=== PATIENT | female | born 1935 | race Caucasian/White ===

== ENCOUNTER → 2024-01-08 11:20 | Outpatient (REF) | payer OTHER, SELFPAY | LOC: RAD 11:20 | PROVIDERS: ATTENDING PHYSICIAN Student in an Organized Health Care Education/Training Program; FAMILY PHYSICIAN Internal Medicine Geriatric Medicine; OTHER PHYSICIAN Physician Assistant; REFERRING PHYSICIAN Radiology Vascular & Interventional Radiology | DX: S32.020A Wedge compression fracture of second lumbar vertebra, initial encounter for closed fracture (principal) | CPT/HCPCS: 72131 ==

== ENCOUNTER → 2024-01-18 06:57 | Outpatient (REF) | payer OTHER, SELFPAY ==
[2024-01-18] VITALS (13 sets, daily range): BP systolic 58–179; BP diastolic 57–90
[2024-01-18 07:31] LABS: Hematocrit 42.3 % (37.0-47.0); Mean Corp Hgb Conc. 33.1 g/dL (33.0-37.0); Mean Corpuscular Hgb 30.9 pg (27.0-31.0); Mean Corpuscular Volume 93.4 fL (81.0-99.0); Mean Platelet Volume 9.7 fL (7.4-10.4); Platelet Count 203 10^3/uL (130-400); Red Blood Cell Count 4.53 10^6/uL (4.20-5.40); Red Cell Dist. Width 15.8 % (11.5-14.5); White Blood Cell Count 8.2 10^3/uL (4.8-10.8)
[2024-01-18 07:38] LABS: INR 1.04; PT 13.9 Sec (11.4-14.6)
[2024-01-18] MEDS: ANCEF 10 IV (08:50)
== END ==
LOC: RADI 06:57
PROVIDERS: ATTENDING PHYSICIAN Radiology Vascular & Interventional Radiology; FAMILY PHYSICIAN Internal Medicine Geriatric Medicine; REFERRING PHYSICIAN Student in an Organized Health Care Education/Training Program
DX: M80.08XA Age-related osteoporosis with current pathological fracture, vertebra(e), initial encounter for fracture (principal); D68.8 Other specified coagulation defects; M54.50 Low back pain, unspecified
CPT/HCPCS: 22514; 22515; 36415; 76377; 85027; 85610

== ENCOUNTER 2024-01-29 08:02 | Inpatient (IN) | payer OTHER, SELFPAY ==
[2024-01-26 11:23] VITALS: BP 141/89
[2024-01-26] MEDS: DILAUDID 0.25 MG IV (13:57)
[2024-01-26] MEDS: ZOFRAN 4 MG IV (13:57)
[2024-01-26] MEDS: NSS 500 IV (13:57)
--- NOTE | 2024-01-26 13:58 | ED.GENMED ---
History of Present Illness
General
Chief Complaint: Back Pain
Source: patient and family
Exam Limitations: none
Time Seen by Provider: 01/26/24 13:00
Nursing documentation reviewed up to this point in time: agreed with
History of Present Illness
History of Present Illness:
pt is a 88 y/o F with h/o HTN, HLD, mi
chronic back pain secondary to compression fx since oct 2023
was on oxycodone up to 7.5 mg 4 times a day
iniitally only 1 compresion fx idenfied
until another image this month showed a 2nd one
then on 01/[address] brunner L2, L3. she was doing ok afterward for 2-3 days and then pain got much
she doesns't recall injuring her self
she was doing more walking just before her pain restarted
she feels like she did after the original compression fracture
pt has chronic urinary incontinence,, and no change to this
she has no numbness/tingling/weakness or radiation of pain
but her pain is severe with movement in the stretcher
she was unable to get herself out of bed so she came via 911
no fever, chills, diarrhea
she has some consitpation but miralax hleped
pt has also had nause/avomiting intermittently the past few weeks/months but more frequently in the past 2-3 day
she has no abdomianl pain
Past History
Past History
ED Past Medical History: HTN, Hypercholesterolemia and Other ([place])
Social History
Tobacco: Non-smoker
Alcohol: None
Drug: None
Personal: Single
Living: alone
Review of Systems
Review of Systems
Allergies reviewed?: Yes
All Other Systems: Not applicable
Phy Exam
Physical Exam
Physical Exam:
GENERAL: Alert ,ANXIOUS, MOILDLY UNCOMFORTABLE
MM dry
CARDIAC: Regular rate and rhythm, no edema
LUNGS: Clear breath sounds bilaterally, no acute respiratory distress, no wheezes/rales/rhonchi
ABDOMEN: Soft, without focal tenderness, no r/g, no cvat, normal bowel sounds, nondistended
NEUROLOGICAL: Alert and oriented, no focal neuro deficits, CN intact, 5/5 strength, sensation intact, ambulation slight limp left leg
SKIN: Warm and dry, bandaids back
no erythema
MUSCULOSKELETAL: No edema, well perfused. can range hips
Back: No midline tenderness, mild b/l lumbar paraspinal muscle tenderness, some pain with rotation/moving in the stretcher no swelling
negative straight leg raise Bilaterally
PSYCH: Normal and appropriate interaction.
Course
Orders/Labs/Results
Orders:
Orders
01/26/24 Breakfast
Cholesterol Lowering
At Your Request: Full Participation
Cholesterol Lowering: Sodium, 2 Gram
01/26/24 13:31
Straight cath- Treatment ONCE
0.9% Sodium Chloride 500 ml [Nss] 500 ml IV BOLUS
HYDROmorphone [Dilaudid] 0.25 mg IV NOW STA
Ondansetron Injectable [Zofran] 4 mg IV NOW STA
01/26/24 13:32
CT Lumbar Spine W/o Iv Contras Urgent
Comment:
Reason For Exam: severe back pain; 8 days ago vertebroplasty l2/l3
01/26/24 13:54
Complete Blood Count/With Diff Urgent
01/26/24 14:12
Urinalysis Reflex To Culture Urgent
Date Specimen was Collected: 01/26/24
Time Specimen was Collected: 14:11
Urine Microscopic Reflex Cult Urgent
Urine Culture Urgent
TAYLOR Source: U
Specimen Description:
Date Specimen was Collected: 01/26/24
Time Specimen was Collected: 14:11
01/26/24 15:30
Basic Metabolic Panel Urgent
Lipase Urgent
01/26/24 16:29
CefTRIAXone [Rocephin] 1,000 mg IV NOW STA
01/26/24 16:33
CMP [Comprehensive Metabolic Panel] Urgent
01/26/24 16:35
Sterile Water [Sterile Water For Injection] 10 ml .ROUTE .STK-MED ONE
01/26/24 16:52
Admit/Transfer Patient As Directed
Co-Sign Provider:
Level of Care: Observation services
Assign to:: Medical/Surgical
Physician / Group: hai
Diagnosis: UTI
PRN Pain Medication Management As Directed
May give lesser potent ordered pain med per pt: Yes
preference::
Protocol:: Medication orders for pain may be administered in a
manner that supports deferring to patient preference
when the pt is:
- Requesting an ordered lesser potent pain medication.
Least to most potent pain medications are defined
as: acetaminophen < NSAID < tramadol < opioids
(morphine, oxycodone, hydromorphone).
- Requesting a lesser dose of the same medication IF
ORDERED.
- Requesting a less intrusive route of administration
if both routes are prescribed by the provider (PO <
IV).
01/26/24 16:53
Code Status As Directed
Resuscitation Status: Do not resuscitate
Reached after discussion with pt or family/Healthcare POA: Yes
DNR Bracelet Application ONCE
01/26/24 18:21
Bisacodyl [Dulcolax] 10 mg RECTAL [id number] PRN
Docusate W/Senna [Senokot-S] 1 tablet PO BIDPRN PRN
Polyethylene Glycol Powder [Miralax] 17 grams PO DAILYPRN PRN
01/26/24 18:21
Activity As Directed
Activity Level: As Tolerated
Pneumatic Compression Sleeves As Directed
Type: Knee high
Vital Signs As Directed
Frequency: Per unit guidelines
DX Deep Vein Thrombosis Video Routine
01/26/24 19:22
HYDROmorphone [Dilaudid] 1 mg IV Q4HPRN PRN
01/26/24 22:00
Acetaminophen [Tylenol] 1,000 mg PO TID
Atorvastatin [Lipitor] 20 mg PO HS
Losartan [Cozaar] 25 mg PO HS
01/27/24 06:00
Occupational Therapy Consult [Ot Eval And Treat] IN AM
Physical Therapy Consult [Pt Eval And Treat] IN AM
Activity Level: As Tolerated
01/27/24 08:00
Atenolol [Tenormin] 25 mg PO Q48H
Lidocaine [Lidocaine 4% Patch] 1 patch TOPICAL DAILY
Apply Lidocaine patch(s) to:: LOWER BACK
Sertraline HCl [Zoloft] 100 mg PO DAILY
Abnormal Lab Results
01/26/24 01/26/24 01/26/24
13:54 14:12 15:30
MCHC 32.9 L g/dL
(33.0-37.0)
RDW 15.9 H %
(11.5-14.5)
Abs Immat Gran (auto) 0.1 H 10^3/uL
(0-0.05)
Absolute Neuts (auto) 7.7 H 10^3/uL
(1.4-6.5)
Absolute Lymphs (auto) 0.8 L 10^3/uL
(1.2-3.4)
Absolute Monos (auto) 1.1 H 10^3/uL
(0.1-0.6)
Neutrophils % 79.1 H %
(42.2-75.2)
Lymphocytes % 7.8 L %
(20.5-51.1)
Monocytes % 11.2 H %
(1.7-9.3)
Creatinine 0.5 L mg/dL
(0.6-1.0)
Glucose 112 H mg/dl
(70-99)
Urine Ketones 1+ A
(Negative)
Ur Occult Blood Reflex Trace A
(Negative)
Urine Nitrite (Reflex) Positive A
(Negative)
Urine Bilirubin 1+ A
(Negative)
Leukocyte Esterase Rfl 1+ A
(Negative)
Urine WBC (Reflex) 11-15 A /HPF
(0-5)
Urine Bacteria (Reflex) Many A
(Negative)
Urine Albumin (Reflex) 1+ A
(Neg - Trace)
01/26/24
16:33
MCHC
RDW
Abs Immat Gran (auto)
Absolute Neuts (auto)
Absolute Lymphs (auto)
Absolute Monos (auto)
Neutrophils %
Lymphocytes %
Monocytes %
Creatinine 0.5 L mg/dL
(0.6-1.0)
Glucose 114 H mg/dl
(70-99)
Urine Ketones
Ur Occult Blood Reflex
Urine Nitrite (Reflex)
Urine Bilirubin
Leukocyte Esterase Rfl
Urine WBC (Reflex)
Urine Bacteria (Reflex)
Urine Albumin (Reflex)
01/26/24 13:54
01/26/24 16:33
Vital Signs
Initial and Last Documented VS:
Initial Vital Signs
Temp Pulse Resp BP Pulse Ox
37.3 C 75 16 141/89 95
01/26/24 11:23 01/26/24 11:23 01/26/24 11:23 01/26/24 11:23 01/26/24 11:23
Last Documented Vital Signs
Temp Pulse Resp BP Pulse Ox
36.9 C 88 16 130/99 94
01/26/24 18:46 01/26/24 21:49 01/26/24 18:46 01/26/24 21:49 01/26/24 18:46
MDM/Problems Addressed
Differential Diagnosis Includes:
uti, obstructive uropathy, compression fracture, post op in fection
MDM/Problems Addressed:
88 y/o F
chronic lower back pain
s/p vertebroplasty last week
here with inc pain and nausea/vomiting for the pat 3 days
vomiting is occasional and thought to be related to her use of oxycodon
no trauma
no cauda equina symptoms
chronically incontinent
ua positive
ct shows new L4 compression fx
getting ivf, abx, and pain meds;
from [facility] choice; probably will need rehab there, family is requesting consult from CM
*Critical Care Note
Total Time (30-74mins, 75-104mins- exclusive of procedures): Not Applicable
ED Attending Note
-
Portions of this chart may have been created with voice recognition software.� Occasional wrong word or��sound alike� substitutions may have occurred due to the inherent limitations of voice recognition software.
Discharge Plan
Departure
Patient Disposition: Admit
Date of Disposition: 01/26/24
Time of Disposition: 16:20
Admit to: Med/Surg
Presentation/result/management discussed w/ accepting MD/DO: Hospitalist
Condition: Fair
Covid-19: Not Applicable
Discharge Problem:
Compression fracture, UTI (urinary tract infection), Vomiting
Interventions
Interventions:
*Risk Screen - Suicide Last Done: 01/26/24 11:23
*General Assessment Last Done: 01/26/24 11:23
*Neglect/Abuse Screening Last Done: 01/26/24 11:23
ED- Fall Risk Assessment Last Done: 01/26/24 18:20
*ED COVID-19 Vaccine History Last Done: 01/26/24 19:28
*Nursing Disposition Last Done: 01/26/24 18:20
ED-Musculoskeletal Assessment Last Done: 01/26/24 14:03
Discharge Date and Time
Discharge Date/Time: 01/26/24 18:27
[2024-01-26 14:01] VITALS: BP 152/80
[2024-01-26 14:07] LABS: % Basophils 0.2 % (0-2); % Eosinophils 1.2 % (0-6); % Immature Granulocytes 0.5 % (0-0.5); % Lymphocytes 7.8 % (20.5-51.1); % Monocytes 11.2 % (1.7-9.3); % Neutrophils 79.1 % (42.2-75.2); Absolute Eosinophils 0.1 10^3/uL (0-0.7); Absolute Immature Granulocytes 0.1 10^3/uL (0-0.05); Absolute Lymphocytes 0.8 10^3/uL (1.2-3.4); Absolute Monocytes 1.1 10^3/uL (0.1-0.6); Absolute Neutrophils 7.7 10^3/uL (1.4-6.5); Hematocrit 40.4 % (37.0-47.0); Hemoglobin 13.3 g/dL (12.0-16.0); Mean Corp Hgb Conc. 32.9 g/dL (33.0-37.0); Mean Corpuscular Hgb 30.5 pg (27.0-31.0); Mean Corpuscular Volume 92.7 fL (81.0-99.0); Mean Platelet Volume 9.4 fL (7.4-10.4); Nucleated Red Blood Cells % 0 %; Platelet Count 178 10^3/uL (130-400); Red Blood Cell Count 4.36 10^6/uL (4.20-5.40); Red Cell Dist. Width 15.9 % (11.5-14.5); White Blood Cell Count 9.7 10^3/uL (4.8-10.8)
[2024-01-26 14:33] LABS: Urine Albumin 1+ (Neg - Trace); Urine Bilirubin 1+ (Negative); Urine Character Clear (Clear); Urine Color Yellow; Urine Glucose Negative (Negative); Urine Ketone 1+ (Negative); Urine Leukocyte 1+ (Negative); Urine Nitrite Positive (Negative); Urine Occult Blood Trace (Negative); Urine Specific Gravity 1.025 (<1.030); Urine Urobilinogen 1+ (Neg - 1+)
[2024-01-26 14:46] LABS: Urine Mucus Many
[2024-01-26 14:47] LABS: Urine Calcium Oxalate Crystals Seen
[2024-01-26 14:48] LABS: Urine Bacteria Many (Negative); Urine Red Blood Cell 0-2 /HPF (0-2)
[2024-01-26 15:25] VITALS: BP 146/108
[2024-01-26 16:00] VITALS: BP 159/82
[2024-01-26 16:21] LABS: Blood Urea Nitrogen 14 mg/dl (7-17); Calcium 8.9 mg/dl (8.4-10.2); Carbon Dioxide 26 mmol/L (22-30); Chloride 104 mmol/L (98-107); Glucose 112 mg/dl (70-99); Sodium 136 mmol/L (135-145); eGFR > 60.00
--- NOTE | 2024-01-26 16:31 | HPS.HSE ---
Family Physician
-
Family Physician: June Dewey
Chief Complaint
-
lower back pain
History of Present Illness
88 y/o F with h/o HTN, HLD, chronic back pain secondary to compression fx since oct 2023, underwent vertebroplasty a week ago. Patient was doing fine until Thursday. She was taking oxycodone which made her nauseous and vomiting. Since Thursday,
she is in excruciating pain. Patient stated it is extremely painful to get up and walk. She cannot even turn [id number] in the bed. It is extremely painful with any movement. Denied any numbness or tingling of lower extremities. Patient
denied any incontinence of urine. Patient denied any headache, dizzy. Patient denied any fever, chills, chest pain, short of breath. Patient denied any abdominal pain, nausea, vomiting, diarrhea. Patient denied dysuria hematuria.
CT with L4 compression fracture. Positive urinalysis. Patient received a dose of ceftriaxone, Dilaudid, normal saline and Zofran in ER. Admitting for further management
Medical History
Past Medical History
Past Medical History: Reports Other
Additional Past Medical History:
Hypertension type 2 diabetes
Past Surgical History: Reports Other
Additional Past Surgical History:
Knee replacement
Left wrist surgery
Appendectomy
Left shoulder surgery
Left breast mass incisional biopsy
Social History
Tobacco: Former Smoker
Alcohol: None
Drug: None
Personal: Single
Living: Alone
Family History
Family History: Not pertinent
Allergies / Home Medications
Allergies reflects when Allergies were last updated in [employer].
Home Medications with original date entered in [employer]
Allergy/Medication List:
Allergies
Allergy/AdvReac Type Severity Reaction Status Date / Time
tetracycline Allergy Itching Verified 01/26/24 11:27
Home Medications
acetaminophen 500 mg tablet 1,000 mg PO TID 08/20/21
atenolol 25 mg tablet 25 mg PO Q OTHER DAY 08/20/21
atorvastatin 20 mg tablet 20 mg PO QPM 08/20/21
losartan 25 mg tablet 25 mg PO QPM 08/20/21
sertraline 100 mg tablet 100 mg PO DAILY 08/20/21
calcitonin (salmon) 200 unit/actuation nasal spray 1 spray intranasal (ALT) DAILY 01/18/24
oxycodone 5 mg tablet 7.5 mg PO Q6H PRN back pain 01/18/24
Review of Systems
-
Constitutional: Reports No Symptoms
EENT: Reports No Symptoms
Respiratory: Reports No Symptoms
Cardiac: Reports No Symptoms
Abdomen/GI: Reports No Symptoms
: Reports No Symptoms
Musculoskeletal: Reports Other (Back pain)
Skin: Reports No Symptoms
Neurological: Reports No Symptoms
Endocrine: Reports No Symptoms
Hematologic/Lymphatic: Reports No Symptoms
Psych: Reports No Symptoms
Physical Exam
Vital Signs
Vital Signs
Temp Pulse Resp BP Pulse Ox
99.2 F 69 13 159/82 95
01/26/24 11:23 01/26/24 16:00 01/26/24 15:45 01/26/24 16:00 01/26/24 16:00
Physical Exam
General: Well Developed, Well Nourished and No Apparent Distress
HEENT: NormoCephalic, Moist mucous membranes and Atraumatic
Respiratory: Clear
Cardiac: S1/S2 and Regular Rhythm; No Murmur or Rub
GI: Soft, Non Tender, Non Distended and Normal Bowel Sounds; No Organomegaly
Rectal: Deferred by Provider
Musculoskeletal: No Clubbing, No Cyanosis and No Edema
Skin: No Rash
Neuro: AO x 3 and Nonfocal/grossly intact
Psych: Calm
Laboratory Results
-
01/26/24 13:54
12/17/24 15:30
Laboratory Results
Total Bilirubin Cancelled 01/26/24 15:30
AST Cancelled 01/26/24 15:30
ALT Cancelled 01/26/24 15:30
Alkaline Phosphatase Cancelled 01/26/24 15:30
Lipase Cancelled 01/26/24 13:54
Data Reviewed
-
CT Scan: Report Reviewed by me
Lab Data: Labs Reviewed by me
Impression/Plan
-
# New L4 compression fracture
-CT lumbar spine with impression of Post procedural changes of L2 on L3 kyphoplasty without evidence of complication. There is stable mild loss of height. There is no significant retropulsion.There is a new slight loss of height of the L4 vertebral
body favored to represent an acute compression fracture. There is no retropulsion.There is multilevel degenerative changes which are overall similar in appearance to recent prior CT and most pronounced at L3-L4 where there is resultant moderate
canal stenosis and moderate bilateral neuroforaminal narrowing.
-Tylenol [id number]
-Lidocaine patch
-Dilaudid as needed for pain
-Ibuprofen prn
-PT/OT consulted
# Urinary tract infection
-Patient is asymptomatic
-Received a dose of ceftriaxone in ER
-Hold ceftriaxone as patient is asymptomatic
-Tylenol as needed for fever
# Essential hypertension
-Atenolol and losartan continued with hold parameters
Hyperlipidemia
-Statin continued
# DVT prophylaxis
-SCDs
# CODE STATUS
-Patient is DNR
[2024-01-26] MEDS: ROCEPHIN 1000 MG IV (16:37)
[2024-01-26 17:12] LABS: ALT (SGPT) 14 U/L (0-35); AST (SGOT) 25 U/L (14-36); Alkaline Phosphatase 76 U/L (38-126); Blood Urea Nitrogen 13 mg/dl (7-17); Calcium 9.1 mg/dl (8.4-10.2); Carbon Dioxide 26 mmol/L (22-30); Chloride 102 mmol/L (98-107); Glucose 114 mg/dl (70-99); Sodium 138 mmol/L (135-145); Total Bilirubin 1.3 mg/dl (0.2-1.3); Total Protein 6.3 g/dl (6.3-8.2); eGFR > 60.00
[2024-01-26 17:13] LABS: Lipase 37 U/L (23-300)
--- NOTE | 2024-01-26 17:22 | W.PN.UPDATE ---
Update Note
Progress Note Update
This is an addendum to the H&P written by Megan Angeles in 01/26/2024. Patient seen and examined independent with DATA OPERATIONS DIRECTOR.
88-year-old female past medical history of hypertension, hyperlipidemia, compression fracture of L2-L3 status post kyphoplasty last week with worsening pain afterwards. No falls previously or recently.
She she has been taking oxycodone for pain and does become nauseous with vomiting while on oxycodone which has been ongoing.
Lumbar CAT scan shows likely new acute compression fracture of L4 vertebral body. Tylenol, ibuprofen, Dilaudid, lidocaine patch for pain. PT/OT.
[2024-01-26 18:46] VITALS: BP 162/82; BMI 30.4
[2024-01-26] MEDS: DESENEX/MITRAZOL/ZEASORB 1 APPLIC TOPICAL (20:47)
[2024-01-26] MEDS: TYLENOL 1000 MG PO (21:49)
[2024-01-26] MEDS: COZAAR 25 MG PO (21:49)
[2024-01-26] MEDS: LIPITOR 20 MG PO (21:49)
[2024-01-26 23:36] VITALS: BP 147/68
[2024-01-27 07:23] VITALS: BP 140/88
[2024-01-27] MEDS: ZOLOFT 100 MG PO (07:23)
[2024-01-27] MEDS: LIDOCAINE 4% PATCH 1 PATCH TOPICAL (07:23)
[2024-01-27] MEDS: TYLENOL 1000 MG PO ×2 (07:23→15:04)
[2024-01-27] MEDS: TENORMIN 25 MG PO (07:24)
[2024-01-27] MEDS: DESENEX/MITRAZOL/ZEASORB 1 APPLIC TOPICAL ×2 (07:29→20:59)
[2024-01-27 09:37] VITALS: BP 149/80; PULSE 58; O2SAT 90
[2024-01-27] MEDS: STERILE WATER FOR INJECTION 10 ML IV (13:48)
[2024-01-27] MEDS: ROCEPHIN 1000 MG IV (13:48)
--- NOTE | 2024-01-27 14:29 | W.PN.HOSP.TC ---
Today's Communication/Plan
-
Await interventional radiology evaluation
Discharge planning to [facility]
Assessment / Plan
Assessment / Plan
88-year-old female presented with pain. She had compression fracture of L2-L3 status post vertebroplasty last week with worsening pain afterwards. She has been taking oxycodone for pain became nauseous and vomiting with that. CT shows L4 acute
compression fracture.
CT L Spine-Post procedural changes of L2 on L3 kyphoplasty without evidence of complication. There is stable mild loss of height. There is no significant retropulsion.There is a new slight loss of height of the L4 vertebral body favored to represent
an acute compression fracture. There is no retropulsion.There is multilevel degenerative changes which are overall similar in appearance to recent prior CT and most pronounced at L3-L4 where there is resultant moderate canal stenosis and moderate
bilateral neuroforaminal narrowing.
CVS: S1-S2 normal
Chest: CTA B/L
Abdomen: Soft, NT / Bowel sounds present
Extremities: No edema, normal pulses
JUNK DEALER: No sensorimotor deficits
Lumbar spine tenderness
# New compression fracture L4
History of compression fracture L2-L3 status post vertebroplasty by interventional radiology-Dr. Hadley
Pain control with Tylenol, lidocaine, add Celebrex
No ibuprofen given vomiting
Muscle relaxants
PT OT evaluation
# UTI-cultures with E. coli
Received a dose of ceftriaxone in the ER, continue ceftriaxone
# Hypertension-continue atenolol and losartan
# Hyperlipidemia-continue statin
# Continue calcitonin supplement
# Diet-controlled diabetes
# Depression-continue sertraline
# Chronic vertigo
# Ex-smoker
# DVT prophylaxis-SCDs
# DNR
Discussed with PT at bedside
Discussed with patient's daughter on the phone
Sent a message to interventional radiology and consult placed
Sent a message to case management
Anticipated Discharge: Within 24 hours
Subjective/Interval History
-
Date of Service: January 27, 2024
Objective Data
-
Vital Signs:
Vital Signs
Temp Pulse Resp BP Pulse Ox
97.7 F 81 17 140/88 94
01/27/24 07:23 01/27/24 07:23 01/27/24 07:23 01/27/24 07:23 01/27/24 07:23
I&O
01/26/24 01/27/24 01/28/24
06:59 06:59 06:59
Intake Total 60 / 60
Balance 60 / 60
[2024-01-27 14:54] VITALS: BP 154/73
[2024-01-27] MEDS: PROTONIX 40 MG PO (15:04)
[2024-01-27] MEDS: CELEBREX 200 MG PO (20:58)
[2024-01-27] MEDS: COZAAR 25 MG PO (21:03)
[2024-01-27] MEDS: LIPITOR 20 MG PO (21:04)
[2024-01-27 23:05] VITALS: BP 131/54
[2024-01-28] MEDS: TYLENOL 1000 MG PO ×4 (00:12→23:23)
[2024-01-28 07:10] VITALS: BP 161/81
[2024-01-28] MEDS: CELEBREX 200 MG PO ×2 (08:48→21:23)
[2024-01-28] MEDS: ZOLOFT 100 MG PO (08:48)
[2024-01-28] MEDS: LIDOCAINE 4% PATCH 1 PATCH TOPICAL (08:49)
[2024-01-28] MEDS: PROTONIX 40 MG PO (08:49)
[2024-01-28] MEDS: DESENEX/MITRAZOL/ZEASORB 1 APPLIC TOPICAL ×2 (08:50→21:23)
--- NOTE | 2024-01-28 10:18 | W.PN.HOSP.TC ---
Addendum entered and electronically signed by Kamaljit Nick MD 01/28/24 11:40:
echo ordered
Original Note:
Today's Communication/Plan
-
Patient had a few bites of breakfast this morning. This was before 9 AM
I did let interventional radiology know about this.
Hopefully they can accommodate her this afternoon for a procedure so she does not have to stay the weekend here
Assessment / Plan
Assessment / Plan
88-year-old female presented with pain. She had compression fracture of L2-L3 status post vertebroplasty last week with worsening pain afterwards. She has been taking oxycodone for pain became nauseous and vomiting with that. CT shows L4 acute
compression fracture.
CT L Spine-Post procedural changes of L2 on L3 kyphoplasty without evidence of complication. There is stable mild loss of height. There is no significant retropulsion.There is a new slight loss of height of the L4 vertebral body favored to represent
an acute compression fracture. There is no retropulsion.There is multilevel degenerative changes which are overall similar in appearance to recent prior CT and most pronounced at L3-L4 where there is resultant moderate canal stenosis and moderate
bilateral neuroforaminal narrowing.
CVS: S1-S2 normal
Chest: CTA B/L
Abdomen: Soft, NT / Bowel sounds present
Extremities: No edema, normal pulses
LIFE CLAIMS EXAMINER: No sensorimotor deficits
Lumbar spine tenderness
# New compression fracture L4
History of compression fracture L2-L3 status post vertebroplasty by interventional radiology-Dr. Hadley
Pain control with Tylenol, lidocaine, add Celebrex
No ibuprofen given vomiting
Muscle relaxants
PT OT evaluation
# UTI-cultures with E. coli
Received a dose of ceftriaxone in the ER, continue ceftriaxone, switch to ceftin at discharge
# Hypertension-continue atenolol and losartan
# Hyperlipidemia-continue statin
# Continue calcitonin supplement
# Diet-controlled diabetes
# Depression-continue sertraline
# Chronic vertigo
# Ex-smoker
# DVT prophylaxis-SCDs
# DNR
Discussed with patient's daughter on the phone 01/27/24
Anticipated Discharge: Within 24 hours
Subjective/Interval History
-
Date of Service: January 28, 2024
Objective Data
-
Labs:
Laboratory Results
01/28/24
10:17
PT Pending
INR Pending
Vital Signs:
Vital Signs
Temp Pulse Resp BP Pulse Ox
97.3 F 63 14 161/81 92
01/28/24 07:10 01/28/24 07:10 01/28/24 07:10 01/28/24 07:10 01/28/24 07:10
I&O
01/27/24 01/28/24 01/29/24
06:59 06:59 06:59
Intake Total 60 / 60 720 / 720
Balance 60 / 60 720 / 720
--- NOTE | 2024-01-28 10:26 | CM ---
PT OT indicate snf .
Pt lives at [facility] .
Spoke with [facility] they have a bed . Pt has [employer] insurance and can obtain an auth day of admission with rep Julianne Friend.
Pt NPO for IR procedure today.
[facility]
report [phone]
fax [phone]
[facility] To [facility] [place] at dc after auth
--- NOTE | 2024-01-28 10:33 | W.PN.UPDATE ---
Update Note
Progress Note Update
Discussed with case management today, they can get authorization tomorrow with her insurance for discharge tomorrow.
[facility] can accept the patient tomorrow if she gets a vertebroplasty done today.
[2024-01-28 10:36] VITALS: BP 152/81; PULSE 62; O2SAT 90
[2024-01-28 11:19] LABS: INR 1.09; PT 14.6 Sec (11.4-14.6)
[2024-01-28 11:34] LABS: Blood Urea Nitrogen 20 mg/dl (7-17); Calcium 9.7 mg/dl (8.4-10.2); Carbon Dioxide 27 mmol/L (22-30); Chloride 101 mmol/L (98-107); Estimated Creatinine Clearance 63 ml/min; Glucose 154 mg/dl (70-99); Potassium 3.7 mmol/L (3.5-5.1); Sodium 135 mmol/L (135-145); eGFR > 60.00
--- NOTE | 2024-01-28 12:48 | PTCARENOTE ---
patient with pain during physical therapy, denies need for analgesia. transferring with assist x1 to chair/bsc, NPO for vertebroplasty, vss, will continue to monitor.
[2024-01-28] MEDS: STERILE WATER FOR INJECTION 10 ML IV (14:05)
[2024-01-28] MEDS: ROCEPHIN 1000 MG IV (14:05)
[2024-01-28 15:36] VITALS: BP 162/107
[2024-01-28] MEDS: LIPITOR 20 MG PO (21:23)
[2024-01-28] MEDS: COZAAR 25 MG PO (21:23)
[2024-01-28 23:00] VITALS: BP 155/72
[2024-01-29] VITALS (15 sets, daily range): BP systolic 54–183; BP diastolic 73–101; PULSE 56; O2SAT 99
--- NOTE | 2024-01-29 08:07 | W.PN.HOSP.TC ---
Today's Communication/Plan
-
Discharge today
Assessment / Plan
Assessment / Plan
Physical Exam
General: Not in acute distress
HEENT: Normocephalic
Respiratory: Clear to Auscultation Bilaterally
Cardiac: S1/S2 and Regular Rhythm
GI: Soft, Non Tender, Non Distended and Normal Bowel Sounds
Musculoskeletal: No Cyanosis and No Edema
Skin: Warm. Dry.
Neuro: AAO x 3 and Nonfocal/grossly intact
Psych: Calm
Assessment/Plan
88-year-old female presented with pain. She had compression fracture of L2-L3 status post vertebroplasty last week with worsening pain afterwards. She has been taking oxycodone for pain became nauseous and vomiting with that. CT shows L4 acute
compression fracture.
CT L Spine-Post procedural changes of L2 on L3 kyphoplasty without evidence of complication. There is stable mild loss of height. There is no significant retropulsion.There is a new slight loss of height of the L4 vertebral body favored to represent
an acute compression fracture. There is no retropulsion.There is multilevel degenerative changes which are overall similar in appearance to recent prior CT and most pronounced at L3-L4 where there is resultant moderate canal stenosis and moderate
bilateral neuroforaminal narrowing.
CVS: S1-S2 normal
Chest: CTA B/L
Abdomen: Soft, NT / Bowel sounds present
Extremities: No edema, normal pulses
FOAM CASTER: No sensorimotor deficits
Lumbar spine tenderness
# New compression fracture L4 status post technically successful L4 percutaneous vertebral augmentation and vertebroplasty
History of compression fracture L2-L3 status post vertebroplasty by interventional radiology-Dr. Hadley
Pain control with Tylenol, lidocaine, add Celebrex
No ibuprofen given vomiting
Muscle relaxants
PT OT evaluation
# UTI-cultures with pansensitive E. coli
While inpatient, received Ceftriaxone
On discharge, switch to Cefuroxime 250 mg Q12H x2 more days
# Hypertension-continue atenolol and losartan
# Hyperlipidemia-continue statin
# Continue calcitonin supplement
# Diet-controlled diabetes
# Depression-continue sertraline
# Chronic vertigo
# Ex-smoker
# DVT prophylaxis-SCDs
# DNR
Dr. Nick discussed with patient's daughter on the phone 01/27/24
More than 30 minutes spent in discharge including
Final examination of the patient
Summarizing hospital stay
Instructions for continuing care to all relevant caregivers
Preparation of discharge records, prescriptions, and referral forms
Total time spent (in minutes): 36
Anticipated Discharge: Today
Subjective/Interval History
-
Date of Service: January 29, 2024
Patient was seen and examined. She denied any new symptoms or complaints, she denied any pain.
Objective Data
-
Vital Signs:
Vital Signs
Temp Pulse Resp BP Pulse Ox
97.5 F 72 20 183/97 95
01/29/24 07:56 01/29/24 07:56 01/29/24 07:56 01/29/24 07:56 01/29/24 07:56
I&O
01/28/24 01/29/24 01/30/24
06:59 06:59 06:59
Intake Total 720 / 720 660 / 660
Balance 720 / 720 660 / 660
[2024-01-29] MEDS: TENORMIN 25 MG PO (08:31)
[2024-01-29] MEDS: PROTONIX 40 MG PO (08:31)
[2024-01-29] MEDS: ZOLOFT 100 MG PO (08:31)
[2024-01-29] MEDS: TYLENOL 1000 MG PO (08:31)
[2024-01-29] MEDS: LIDOCAINE 4% PATCH 1 PATCH TOPICAL (08:32)
[2024-01-29] MEDS: DESENEX/MITRAZOL/ZEASORB 1 APPLIC TOPICAL ×2 (08:33→21:15)
[2024-01-29] MEDS: CELEBREX PO (10:10)
--- NOTE | 2024-01-29 12:32 | CM ---
Addendum entered by Rafaela Delgado [facility] 01/29/24 15:58:
Auth # for transfer is [id number] NRD 02/01 Auth given by Judith Coelho [facility] should be called into, , questions [phone].
Addendum entered by Rafaela Delgado [facility] 01/29/24 15:01:
Ольгаgermaine stated that she will get the auth from Tawana as it is the [employer].
Addendum entered by Rafaela Delgado [facility] 01/29/24 14:43:
Received return call from James in admissions at [facility], who confirmed the ability to accept patient. # For report [phone]
Medical necessity and transfer sheet completed for patient to transfer.
Will review IMM with family.
Addendum entered by Rafaela Delgado [facility] 01/29/24 14:08:
Spoke with attending who stated that patient can be discharged after sx. Placed a call to Tawana in admissions at [facility] who stated that she does not have a bed for patient today. She stated that [facility], [facility], [facility] and .
Augusta Gilliam stated that she will obtain auth once bed is secured as it is their facility insurance.
Placed a call to [facility] and spoke with James in admissions who stated that she will check her bed availability and will return call with determination. Other referrals sent to in network facilities.
Patient updated by attending and agreeable.
Original Note:
Received call from Tawana in admissions at the [facility] who stated that she may not have a bed for patient until Thursday. W/E workers compensation coordinator, .
Plan: Case management will continue to follow and assist with discharge planning. [facility] when stable and upon bed availability.
[2024-01-29] MEDS: ROCEPHIN 1000 MG IV (13:02)
[2024-01-29] MEDS: STERILE WATER FOR INJECTION 10 ML IV (13:02)
[2024-01-29] MEDS: TYLENOL PO (15:15)
--- NOTE | 2024-01-29 17:32 | W.DCSUMMARY ---
Discharge Summary
Discharge Data
Date of Admission: 01/26/24
Date of Discharge: 01/29/24
Total time spent discharging patient (in min): 36
-
Pending Results: No
Hospital Course
88-year-old female with past medical history of hypertension, hyperlipidemia, compression fracture of L2-L3 status post kyphoplasty the week prior to presentation, presented with worsening pain afterwards. No falls previously or recently. She had
been taking oxycodone for pain and does become nauseous with vomiting while on oxycodone which has been ongoing. Lumbar CT imaging showed likely new acute compression fracture of L4 vertebral body. Patient was suspected of having urinary tract
infection and started on antibiotics. Given concern for heart murmur/suspected aortic stenosis, echocardiogram was ordered and showed, as per consulting technical manager's report, 'Mild concentric left ventricular hypertrophy. Mildly reduced left ventricular
systolic function. Left ventricular ejection fraction is 50% by visual assessment. Anterolateral and inferolateral pacheco are hypokinetic. Stage II diastolic dysfunction suggestive of abnormal relaxation and increased filling pressures. Mild mitral
regurgitation. Calcified aortic valve. Thickened aortic valve with restricted leaflet motion. Mild aortic stenosis. Peak/mean gradients across the aortic valve are 39/22 mmHg. No aortic regurgitation is seen. Mild to moderate tricuspid
regurgitation. Estimated pulmonary artery pressure of 54 mmHg, assuming a right atrial pressure of 3 mmHg. Pulmonic valve opens normally. Normal pericardium without effusion. The IVC is of normal size and demonstrates normal respiratory
variation....'
Patient denied any chest pain, shortness of breath or dizziness. Patient had a successful L4 percutaneous vertebral augmentation and vertebroplasty, her pain improved, and she was stable for discharge.
Discharge Plan
-
Patient Disposition: Care Home/SNF
Discharge Diagnosis/Procedures: #New compression fracture L4 status post technically successful L4 percutaneous vertebral augmentation and
vertebroplasty
#Urinary Tract Infection - cultures with rivers-sensitive E. coli
#Hypertension
#Hyperlipidemia
#Diet-controlled diabetes
#Depression
#Chronic vertigo
#Ex-smoker
Condition: Good
Diet: Low Fat, Low Cholesterol, Low Sodium, 2 Gram Sodium, Diabetic, Carb Controlled and No added salt
Activity: With assistance
Driving Restrictions: No driving
Other Services: PT and OT
Referrals:
June Dewey MD [Family Provider] - in less than 1 week
Flynn Schwab DO [Active] - in four to six weeks (Hospital Echo (echo done 01/28/24) follow-up for aortic stenosis, hypokinesis of pacheco)
Additional Discharge Medication Instructions: Amlodipine is a new medication to help control your blood pressure.
Cefuroxime, Lidocaine Patch, and Tylenol are new medications.
Prescriptions:
New
amlodipine 2.5 mg tablet
2.5 mg PO DAILY Qty: 30 1RF
lidocaine 4 % Adhesive Patch,Medicated
1 patch topical DAILY Qty: 10 0RF
Rx Instructions:
Apply patch to lower back and remove every evening.
cefuroxime axetil 250 mg tablet
250 mg PO Q12H 2 Days Qty: 4 0RF
acetaminophen [Tylenol Extra Strength] 500 mg Tablet
1,000 mg PO Q8H Qty: 30 0RF
Continued
atorvastatin 20 mg Tablet
20 mg PO HS
sertraline 100 mg Tablet
100 mg PO DAILY
atenolol 25 mg Tablet
25 mg PO Q48H
acetaminophen 500 mg Tablet
1,000 mg PO TID
losartan 25 mg Tablet
25 mg PO HS
calcitonin (salmon) 200 unit/actuation [place],Non-Aerosol
1 spray INTRANASAL (ALT) NOON
PreserVision AREDS 4,296 mcg-226 mg-90 mg Capsule
1 cap PO QPM
Discontinued
oxycodone 5 mg Tablet
5 mg PO TID
Patient Comments:
01/26/24: last filled 01/05/24 for 90 tabs over 15 days
Discharge Orders:
Discharge Patient (As Directed); Ordered 01/29/24
Ordered By: Don Dent
Discharge Date and Time
Discharge Date/Time: 01/29/24 22:30
Print Language: SAMI
[2024-01-29] MEDS: CELEBREX 200 MG PO (21:11)
[2024-01-29] MEDS: COZAAR 25 MG PO (22:11)
[2024-01-29] MEDS: LIPITOR 20 MG PO (22:11)
== END 2024-01-29 22:30 | DRG 516 ==
LOC: 3 WEST ACU 08:02
PROVIDERS: Hospitalist; Physician Assistant; Radiology Vascular & Interventional Radiology; ADMITTING PHYSICIAN Hospitalist; ATTENDING PHYSICIAN Hospitalist; EMERGENCY PHYSICIAN Emergency Medicine; FAMILY PHYSICIAN Internal Medicine Geriatric Medicine
PROC: 0QU03JZ Supplement Lumbar Vertebra with Synthetic Substitute, Percutaneous Approach (ICD-10-PCS; 2024-01-29)
PROC: 0QS03ZZ Reposition Lumbar Vertebra, Percutaneous Approach (ICD-10-PCS; 2024-01-29)
DX: M48.54XA Collapsed vertebra, not elsewhere classified, thoracic region, initial encounter for fracture (principal); N39.0 Urinary tract infection, site not specified; G89.21 Chronic pain due to trauma; I10 Essential (primary) hypertension; E78.00 Pure hypercholesterolemia, unspecified; Z66 Do not resuscitate; Z87.891 Personal history of nicotine dependence
CPT/HCPCS: 22514; 72131; 80048; 80053; 81003; 81015; 83690; 85025; 85610; 87086; 87088; 87186; 93306; 96361; 96374; 96375; 97116; 97163; 97167; 97530; 99285